=== PATIENT | female | born 1980 | race Caucasian/White ===

== ENCOUNTER 2024-05-03 10:02 | Emergency (ER) | payer OTHER, SELFPAY ==
[2024-05-03] VITALS (15 sets, daily range): BP systolic 137–177; BP diastolic 88–120; PULSE 65–96; RESP 11–18; TEMP 36.5–36.6; O2SAT 96–100; BMI 32.3
--- NOTE | 2024-05-03 10:39 | CT_ITS ---
FINAL REPORT TECHNIQUE: Oral and IV contrast enhanced exam This study was performed with techniques to keep radiation doses as low as reasonably achievable, (ALARA). Individualized dose reduction techniques using automated exposure control or adjustment of mA and/or kV according to the patient''s size were employed. CLINICAL HISTORY: lower abd pain FINDINGS: Abdomen: No acute density is seen within the lung bases. The gallbladder is unremarkable. There is mild left hydronephrosis and hydroureter without obstructing stone. The remaining solid abdominal organs are unremarkable. No bowel obstruction is present. There is no free air. No fluid collection is seen. There are a few small left periaortic lymph nodes measuring up to 6 mm, not enlarged by imaging criteria. Pelvis: The appendix is not identified. There is mild left common iliac adenopathy measuring 12 mm. There is significant cervical enlargement measuring up to 64 x 50 mm. This strongly raises the question of cervical neoplasm, less likely inflammation. Stranding extends into the adjacent paracervical fat, could represent tumor infiltration or inflammation. The upper uterus and ovaries are normal. There is no free fluid. IMPRESSION: Significant cervical enlargement suspicious for neoplasm, less likely inflammatory. Left-sided hydronephrosis and hydroureter related to cervical enlargement. Mild left pelvic adenopathy, possibly metastatic. Please correlate with Pap smear and physical exam. Reviewed, Interpreted and Dictated by Alden Sanchez MD Transcribed by Deidre Billings Authenticated and [facility]
--- NOTE | 2024-05-03 10:41 | ED_ITS ---
Discharge Plan Disposition Patient Disposition: Home, Self-Care Referrals Follow up/Referrals: Betina Lai APRN [Primary Care Provider] - See instructions Activity Restrictions/Add. Instructions Additional Instructions/Restrictions: As discussed you have significant cervical enlargement concerning for possible cancer with some surrounding lymph nodes which are concerning. We called [facility] gynecology oncology service and spoke with Dr. Shepherd he wants to see you in his clinic tomorrow morning at 8:30 AM. The [facility] transfer center should be calling you to set up that appointment and give you further directions. Additionally you are anemic and we do not have any baseline labs to compare to but if you are bleeding regularly through more than 1 pad an hour we want you to return to the emergency department. Clinical Impressions Clinical Impression: Lower abdominal pain, Abnormal uterine bleeding, Cervix abnormality, Pelvic lymphadenopathy, Acute blood loss anemia Print Language Print Language: Guyanese Discharge ED Provider: Adwoa Choe General Adult HPI General Chief complaint: Vaginal Bleeding Stated complaint: passing blood clots-sent by Time Seen by Provider: 05/03/24 10:22 Mode of Arrival: Ambulatory Source of Information: Patient Description of Symptoms (Recalled from ER Triage Doc. by RN): patient states she has been treated intermittently for UTI since march has also been urinating blood and passing blood clots that she reports have been the size of golf balls she also reports lower abdomanl pain that radiates around her lower back. she reports taking ibuprofen 800mg and tylenol 1000 mg today at 7am for pain. History of Present Illness HPI narrative: The patient is a 44-year-old female presenting today primarily for abnormal bleeding. She is unsure as to whether or not this is from her urinary tract or whether or not it is vaginal. She does states she has been passing large clots for the last 4 days. She has been very irregular for an extended period of time and is felt that she was perimenopausal. She has been to the doctor 3 times in the last month for lower abdominal discomfort was told each time she had a urinary tract infection has finished 3 different courses of antibiotics without improvement including 2 rounds of [address]. No CT imaging or pelvic exams have been performed. Related Data Allergies Allergy/AdvReac Type Severity Reaction Status Date / Time No Known Allergies Allergy Verified 05/03/24 10:48 [facility] Disclaimer: The information contained in this section may have been updated after the patient was seen, as this information can be updated by other users. Social History Smoking Status: Current every day smoker alcohol intake: never current occupational status: other Travel in the last 8 weeks: None ROS Obtained: Yes All systems reviewed & no additional complaints except as documented Physical Exam General General appearance: alert Respiratory Respiratory exam: Present normal lung sounds bilaterally Cardiovascular Cardiovascular exam: Present regular rate Abdominal Exam Abdominal exam: Present soft and tenderness (Lower abdominal tenderness) Neurological Exam Neurological exam: Present alert and oriented X3 Medical Decision Making Medical Records Screening: Per USPSTF and CDC recommendations, given the prevalence of disease in our region, it is our hospital?s policy to screen for HIV and viral Hepatitis for all patients aged 18 and over and those with ongoing risk factors. Jabier Inquiry Pt receiving controlled substance: No Vital Signs: 05/03/24 10:16 05/03/24 10:29 05/03/24 10:30 Temperature 97.7 F 97.7 F Temperature Source Oral Oral Pulse Rate 89 Pulse Rate [Right] 89 Respiratory Rate 15 15 14 Blood Pressure 154/102 H 142/104 H Blood Pressure [Right Arm] 154/102 H Blood Pressure Mean Blood Pressure Mean [Right Arm] 119 Blood Pressure Source Automatic Cuff Blood Pressure Source [Right Arm] Automatic Cuff Blood Pressure Position Sitting Blood Pressure Position [Right Arm] Sitting 02 Sat by Pulse Oximetry 100 100 Oxygen Delivery Method Room Air Room Air 05/03/24 10:45 05/03/24 10:59 05/03/24 11:15 Temperature Temperature Source Pulse Rate 87 82 76 Pulse Rate [Right] Respiratory Rate 15 12 11 L Blood Pressure 141/105 H 156/95 H 137/94 H Blood Pressure [Right Arm] Blood Pressure Mean Blood Pressure Mean [Right Arm] Blood Pressure Source Blood Pressure Source [Right Arm] Blood Pressure Position Blood Pressure Position [Right Arm] 02 Sat by Pulse Oximetry 100 100 100 Oxygen Delivery Method Room Air 05/03/24 12:00 05/03/24 12:16 05/03/24 12:30 Temperature Temperature Source Pulse Rate 76 Pulse Rate [Right] Respiratory Rate 15 16 Blood Pressure 159/88 H 164/103 H 177/120 H Blood Pressure [Right Arm] Blood Pressure Mean 139 Blood Pressure Mean [Right Arm] Blood Pressure Source Blood Pressure Source [Right Arm] Blood Pressure Position Blood Pressure Position [Right Arm] 02 Sat by Pulse Oximetry 100 Oxygen Delivery Method Room Air 05/03/24 12:30 05/03/24 12:41 05/03/24 12:45 Temperature Temperature Source Pulse Rate 71 65 Pulse Rate [Right] Respiratory Rate 14 18 17 Blood Pressure 154/104 H 150/95 H Blood Pressure [Right Arm] Blood Pressure Mean Blood Pressure Mean [Right Arm] Blood Pressure Source Blood Pressure Source [Right Arm] Blood Pressure Position Blood Pressure Position [Right Arm] 02 Sat by Pulse Oximetry 99 99 Oxygen Delivery Method 05/03/24 13:00 Temperature Temperature Source Pulse Rate 80 Pulse Rate [Right] Respiratory Rate 14 Blood Pressure 157/91 H Blood Pressure [Right Arm] Blood Pressure Mean Blood Pressure Mean [Right Arm] Blood Pressure Source Blood Pressure Source [Right Arm] Blood Pressure Position Blood Pressure Position [Right Arm] 02 Sat by Pulse Oximetry 99 Oxygen Delivery Method Lab Data Lab results reviewed: Yes I reviewed the patient's lab results. Lab Results 05/03/24 10:18: WBC 17.8 H, RBC 2.84 L, Hgb 8.4 L, Hct 25.7 L, MCV 90.5, MCH 29.6, MCHC 32.7, RDW 14.6, Plt Count 467 H, MPV 10.4, Neut % (Auto) 64.9, Lymph % (Auto) 21.9, Jack % (Auto) 4.9, Eos % (Auto) 7.0, Baso % (Auto) 0.9, Neut # (Auto) 11.5 H, Lymph # (Auto) 3.9, Jack # (Auto) 0.9, Eos # (Auto) 1.3 H, Baso # (Auto) 0.2, Total Counted 100, Neutrophils % (Manual) 63, Lymphocytes % (Manual) 29, Monocytes % (Manual) 3, Eosinophils % (Manual) 5 H, Platelet Estimate Normal, RBC Morphology Normal, PT 9.8 L, INR 0.86 L, APTT 25.7, Sodium 139, Potassium 3.9, Chloride 111 H, Carbon Dioxide 19 L, Anion Gap 12.9, BUN 12, C reatinine 1.10 H, Estimated Creat Clear 98, Estimated GFR 54 L, Est GFR ( Amer) 66, Glucose 123 H, Calcium 8.7, Total Bilirubin < 0.1 L, AST 24, ALT 20, Alkaline Phosphatase 64, Total Protein 7.5, Albumin 4.0, Globulin 3.5 H, Albumin/Globulin Ratio 1.1, TSH 0.77, Serum HCG, Qual Negative, Urine Color Yellow, Urine Appearance Clear, Urine pH 6.0, Ur Specific Gregory >= 1.030, U rine Protein 2+ A, Urine Glucose (UA) Negative, Urine Ketones Negative, Urine Blood 3+ A, Urine Nitrate Negative, Urine Bilirubin 1+ A, Urine Urobilinogen 0.2, Ur Leukocyte Esterase Trace, Urine RBC Tntc, Urine WBC Occasional, Ur Squamous Epith Cells 3-5 05/03/24 10:18 05/03/24 10:18 Orders (Tests/Meds): ED MEDICATIONS Discontinued Medications Generic Name Dose Route Start Last Admin Trade Name Freq PRN Reason Stop Dose Admin Lactated Ringer's 1,000 mls @ 999 mls/hr 05/03/24 10:45 05/03/24 10:53 Lactated Ringer's 1000 Ml Bag IV 05/03/24 11:45 999 mls/hr .Q1H1M DAHIANA Administration Iopamidol 75 ml 05/03/24 11:29 05/03/24 11:30 Iopamidol-370 (76%);100ml Bottle IV 05/03/24 11:30 75 ml ONCE ONE Administration Ketorolac Tromethamine 15 mg 05/03/24 10:39 05/03/24 10:53 Ketorolac 30mg/Ml Vial IV 05/03/24 10:40 15 mg ONCE ONE Administration Ondansetron HCl 4 mg 05/03/24 10:39 05/03/24 10:52 Ondansetron 4mg/2ml Vial IV 05/03/24 10:40 4 mg ONCE ONE Administration Sodium Chloride 10 ml 05/03/24 11:29 05/03/24 11:30 Sodium Chloride 0.9% 10ml Syr (Rad Only) IV 05/03/24 11:30 10 ml ONCE ONE Administration ORDERS Category Date Time Status CT abdomen pelvis w con Stat Cat Scan 05/03/24 10:39 Taken CBC w/Auto Diff [Complete Blood Count Auto Diff] Stat Lab 05/03/24 10:18 Completed CMP [Comprehensive Metabolic Panel] Stat Lab 05/03/24 10:18 Completed HCG Qualitative, Serum Stat Lab 05/03/24 10:18 Completed PT/PTT Stat Lab 05/03/24 10:18 Completed TSH [Thyroid Stimulating Hormone] Stat Lab 05/03/24 10:18 Completed UA [Urinalysis and Microscopic] Stat Lab 05/03/24 10:18 Completed Medical Decision Narrative: 44-year-old presenting today with bleeding in her vaginal region unsure as to whether or not this is from her urinary tract or her vaginal cavity. Will do a pelvic exam to look into this further. However with her significant lower abdominal tenderness we will obtain a CT image as this is her fourth visit in the last month therefore escalate her diagnostic workup. Differential includes malignancy, fibroid, abnormal uterine bleeding and menstrual cramping, urinary tract infection, etc. Will reassess after pelvic exam is performed. Reassessment 1142 pelvic exam was performed there is clearly bleeding coming from her cervix which is the source of the blood. Her urinalysis was performed which is not convincing from a urinary tract infection standpoint she is also been on multiple antibiotics without improvement. Will not treat her for that. Awaiting CT scan at the moment. CT scan was performed I personally interpreted I did not see any definitive acute intra-abdominal pathology however after reviewing the read from radiology there is significant surgical enlargement suspicious for neoplasm less likely inflammatory there is also left-sided hydronephrosis and hydroureter he related to the cervical enlargement and also left-sided pelvic adenopathy which is possibly metastatic. I discussed the case with Dr. Akbar and given the fact that this is concerning for possible metastatic cervical cancer we both agree that the patient would be best suited under gynecologic oncology at and will discuss the case with them. I spoke with the patient and she is agreeable and understands the possible diagnosis. I spoke with Dr. Shepherd with the notice of [facility] as well as [facility] and the transfer center. Patient does have some anemia but she is hemodynamically stable on my exam she was not actively bleeding there were only clots and she states that she has been symptomatic for possibly up to a year. I do not believe that this is a brisk bleed. She has been advised to return with bleeding through more than a pad an hour otherwise she will see [facility] onc. tomorrow morning at 8:30 AM. She appears stable to me at the moment to wait till tomorrow morning does not need to be emergently transferred. She will return with significant worsening of her bleeding at which point we will recheck her hemoglobin and transfer her likely. She is aware that her symptoms are highly concerning for cervical cancer. Critical Care Critical Care Time Critical Care Time: Yes Attestation: On 05/03/24, the high probability of a clinically significant, sudden or life threatening deterioration of the following system(s) required my full and direct attention, intervention and personal management. The time I documented below is in addition to time spent performing reported procedures but includes the following listed in this critical care notation. Total Time Total Critical Care Time: 35
[2024-05-03 10:47] LABS: Microscopic, Urine URINE MICROSCOPIC (MICROSCOPIC)
[2024-05-03 10:52] LABS: Appearance,Urine CLEAR (Clear); Blood, Urine 3+ (Negative); Color,Urine YELLOW (Yellow); Glucose,Urine (UA) Negative (Negative); Ketones,Urine Negative (Negative); Leukocyte Esterase,Urine TRACE (Negative); Nitrate,Urine Negative (Negative); Protein,Urine 2+ (Negative); Specific Gravity, Urine >= 1.030 (1.005-1.030); Urobilinogen,Urine 0.2 EU/dl (0.2)
[2024-05-03] MEDS: ONDANSETRON 4MG/2ML VIAL 4 MG IV (10:52)
[2024-05-03] MEDS: KETOROLAC 30MG/ML VIAL 15 MG IV (10:53)
[2024-05-03] MEDS: LACTATED RINGERS 1000ML 1,000 ML 999 ML IV (10:53)
[2024-05-03 10:54] LABS: Basophils # 0.2 K/mm3 (0-0.2); Basophils % 0.9 % (0.1-2.0); Eosinophils # 1.3 K/mm3 (0.0-0.4); Hematocrit 25.7 % (37.0-47.0); Hemoglobin 8.4 g/dL (12.2-16.2); Lymphocytes # 3.9 K/mm3 (0.7-4.5); Lymphocytes % 21.9 % (10-50); Mean Corpuscular HGB Conc 32.7 g/dL (31.8-35.4); Mean Corpuscular Hemoglobin 29.6 pg (27.0-31.2); Mean Corpuscular Volume 90.5 fl (81-99); Mean Platelet Volume 10.4 fl (7.4-10.4); Monocytes # 0.9 K/mm3 (0.1-1.0); Monocytes % 4.9 % (1.7-9.3); Neutrophils # 11.5 K/mm3 (1.8-7.8); Neutrophils % 64.9 % (37.0-80.0); Platelet Count 467 K/mm3 (142-424); Red Blood Count 2.84 M/mm3 (4.20-5.40); Red Cell Distribution Width 14.6 % (11.5-17.5); White Blood Count 17.8 K/mm3 (4.8-10.8)
[2024-05-03 10:55] LABS: Bilirubin,Urine 1+ (Negative)
[2024-05-03 10:58] LABS: HCG Qualitative, Serum Negative (Negative)
[2024-05-03 11:03] LABS: Alanine Aminotransferase 20 U/L (12-78); Albumin/Globulin Ratio 1.1 (1.1-1.8); Alkaline Phosphatase 64 U/L (38-126); Anion Gap 12.9 mEq/L (5-15); Aspartate Amino Transferase 24 U/L (14-36); Blood Urea Nitrogen 12 mg/dl (7-17); Calcium 8.7 mg/dl (8.4-10.2); Carbon Dioxide 19 mmol/L (22.0-30.0); Chloride 111 mmol/L (98-107); Creatinine Clearance Estimated 98 mL/min (50-200); Estimated Glomerular Filt Rate 54 ml/min (>60); GFR (African American) 66 ML/MIN (>60); Globulin 3.5 g/dL (1.3-3.2); Glucose 123 mg/dl (74-100); Potassium 3.9 mmoL/L (3.5-5.1); Sodium 139 mmol/L (136-145); Total Protein,Serum 7.5 g/dl (6.3-8.2)
[2024-05-03 11:08] LABS: Bilirubin,Total < 0.1 mg/dl (0.2-1.3)
[2024-05-03 11:17] LABS: MANUAL DIFFERENTIAL MANUAL DIFFERENTIAL (MANUAL DIFF); RBC,Urine TNTC #/hpf (0-3); WBC,Urine Occasional #/hpf (0-3)
--- NOTE | 2024-05-03 11:24 | PC.NURSE ---
rounded on patient she has no concerns at this time
--- NOTE | 2024-05-03 11:24 | PC.NURSE ---
pt went to ultrasound via wheelchair
[2024-05-03] MEDS: IOPAMIDOL-370 (76%);100ML BOTTLE 75 ML IV (11:30)
[2024-05-03] MEDS: SODIUM CHLORIDE 0.9% 10ML SYR (RAD ONLY) 10 ML IV (11:30)
[2024-05-03 11:34] LABS: Thyroid Stimulating Hormone 0.77 uIU/mL (0.465-4.68)
--- NOTE | 2024-05-03 11:43 | PC.NURSE ---
MABEL and Duyen López at bedside during pelvic exam performed by dr mendieta
[2024-05-03 11:45] LABS: Activated Partial Thrombo Time 25.7 seconds (22.8-30.6); INR 0.86 (0.9-1.1); Prothrombin Time 9.8 seconds (10.1-12.5)
[2024-05-03 12:40] LABS: Eosinophils % 5 % (0-3); Lymphocytes % 29 % (10-50); Monocytes % 3 % (2-9); Neutrophils % 63 % (42-76); Total Cells Counted 100
[2024-05-03 12:41] LABS: Platelet Estimate Normal; RBC Morphology Normal
--- NOTE | 2024-05-03 12:41 | PC.NURSE ---
Dr. Choe speaking with Dr. Akbar, DETACKER
--- NOTE | 2024-05-03 12:45 | PC.NURSE ---
Calling [facility] MDs for consult
--- NOTE | 2024-05-03 12:46 | PC.NURSE ---
Images being powershared to [facility] and imaging disc being burned.
--- NOTE | 2024-05-03 12:49 | PC.NURSE ---
Dr. Choe speaking with Dr. Shepherd, COLLET GLUER/ONC MD
--- NOTE | 2024-05-03 13:11 | PC.NURSE ---
rounded on patient, she just came back from bathroom, no concerns at this time, call light in reach
== END 2024-05-03 13:26 | disposition home or self-care (01) ==
PROVIDERS: Emergency Provider Student in an Organized Health Care Education/Training Program; PCP Nurse Practitioner Family
DX: R10.30 Lower abdominal pain, unspecified (principal); N93.9 Abnormal uterine and vaginal bleeding, unspecified; R59.0 Localized enlarged lymph nodes; D50.0 Iron deficiency anemia secondary to blood loss (chronic)
CPT/HCPCS: 74177; 80053; 81001; 84443; 84703; 85007; 85025; 85027; 85610; 85730; 96361; 96374; 96375; 99285; J1885; J2405; J7120; Q9967